=== PATIENT | female | born 1995 | race African-American/Black ===

== ENCOUNTER 2019-07-05 12:21 | Emergency (ER) | payer OTHER, SELFPAY ==
--- NOTE | 2019-07-05 13:13 | RAD ---
LEFT FOOT 3 VIEWS: Date: 07/05/19 HISTORY: Injury this morning following a fall with left 5th metatarsal pain. FINDINGS/IMPRESSION: No fracture, dislocation, or other significant acute osseous abnormality. POS: [facility]
== END 2019-07-05 13:20 | disposition home or self-care (01) ==
LOC: MADERS 12:21
DX: S93.602A Unspecified sprain of left foot, initial encounter (principal); W22.8XXA Striking against or struck by other objects, initial encounter

== ENCOUNTER 2020-04-25 14:46 | Emergency (ER) | payer OTHER, SELFPAY ==
[2020-04-25] MEDS ORDERED: Lidocaine 1% w/Epinephrine 1:100K 20 ML VIAL ONE (15:09)
[2020-04-25] MEDS ORDERED: Lidocaine 2% w/Epinephrine 1:200K 20 ML VIAL ONE (15:09)
[2020-04-25] MEDS ORDERED: Sodium Ferric Gluconate 62.5 MG/5 ML AMP ONE ×2 (15:34→15:42)
== END 2020-04-25 15:30 | disposition home or self-care (01) ==
LOC: MADERS 14:46
DX: L02.411 Cutaneous abscess of right axilla (principal)
CPT/HCPCS: 10060; J2916

== ENCOUNTER 2020-06-08 17:38 | Emergency (ER) | payer MEDICAID, SELFPAY ==
[2020-06-08] MEDS ORDERED: Lidocaine 2% w/Epinephrine 1:200K 20 ML VIAL ONE (18:12)
== END 2020-06-08 18:49 | disposition home or self-care (01) ==
LOC: MADERS 17:38
DX: L02.411 Cutaneous abscess of right axilla (principal)
CPT/HCPCS: 10060

== ENCOUNTER 2020-07-23 02:40 | Emergency (ER) | payer SELFPAY ==
[2020-07-23 03:30] LABS: Hemoglobin 13.2 g/dL (12.0-16.0); Mean Corpuscular HGB CONC 31.2 g/dL (32.0-36.0); Mean Corpuscular Hemoglobin 27.1 pg (27.0-31.0); Mean Corpuscular Volume 86.7 fL (78.0-98.0); Mean Platelet Volume 7.6 fL (7.4-10.4); Platelet Count 305 thou/uL (130-400); RBC Distribution Width 13.1 % (11.5-14.5); Red Blood Cell (RBC) Count 4.87 mill/uL (4.20-5.40); White Blood Cell (WBC) Count 7.7 thou/uL (4.8-10.8)
[2020-07-23 03:40] LABS: ALT (SGPT) 11 U/L (8-55); AST (SGOT) 10 U/L (5-34); Albumin 3.9 g/dL (3.5-5.0); Alkaline Phosphatase 76 U/L (40-110); Anion Gap 13 mmol/L (10-20); BUN (Urea Nitrogen) 14 mg/dL (7.0-18.7); Bilirubin, Total 0.4 mg/dL (0.2-1.2); Calc. Creatinine Clearance 0 mL/min (70-130); Carbon Dioxide 26 mmol/L (22-29); Chloride 105 mmol/L (98-107); Estimated GFR-MDRD Greater than 90; Globulin 3.5 g/dL (2.4-3.5); Glucose 103 mg/dL (70-105); Potassium 3.5 mmol/L (3.5-5.1); Protein, Total 7.4 g/dL (6.0-8.3); Sodium 140 mmol/L (136-145)
[2020-07-23 03:41] LABS: BHCG - Serum Negative (NEGATIVE); Pregs Control Background? CLEAR/WHITE (CLR/WHITE); Pregs Control Bar Appear? YES (CONTROL BAR)
[2020-07-23 04:04] LABS: Lymphocytes 33 % (21-51); MDiff Complete? YES; Monocytes 8 % (0-10); Neutrophil 59 % (42-75); Platelet Morphology Comment Appears Adequate; RBC Morphology Normal
[2020-07-23] MEDS ORDERED: Ketorolac Tromethamine 60 MG/2 ML VIAL ONE (04:15)
== END 2020-07-23 04:45 | disposition home or self-care (01) ==
LOC: MADERS 02:40
DX: R10.11 Right upper quadrant pain (principal)
CPT/HCPCS: 80053; 84703; 85007; 85027; 96372; 99284; J1885

== ENCOUNTER 2021-05-08 10:20 | Emergency (ER) | payer SELFPAY ==
[2021-05-08] MEDS ORDERED: Prochlorperazine 10 MG/2 ML VIAL ONE (10:57)
[2021-05-08] MEDS ORDERED: Ketorolac Tromethamine 30 MG/ML VIAL ONE (10:57)
[2021-05-08] MEDS ORDERED: diphenhydrAMINE 50 MG/ML VIAL ONE (10:57)
[2021-05-08] MEDS ORDERED: Sodium Chloride 0.9% 1,000 ML ONE (10:57)
== END 2021-05-08 12:35 | disposition home or self-care (01) ==
LOC: MADERS 10:20
DX: R51.9 Headache, unspecified (principal)
CPT/HCPCS: 96365; 96375; J0780; J1200; J1885; J7050

== ENCOUNTER 2021-06-17 09:24 | Outpatient (CLI) | payer OTHER | END 2021-06-17 09:25 | disposition home or self-care (01) | LOC: MADRAD 09:24 | PROVIDERS: ATTEND Family Medicine | DX: R10.11 Right upper quadrant pain (principal); K80.20 Calculus of gallbladder without cholecystitis without obstruction | CPT/HCPCS: 76705 ==

== ENCOUNTER 2021-12-20 09:09 | Emergency (ER) | payer OTHER | END 2021-12-20 10:36 | disposition home or self-care (01) | LOC: MADERS 09:09 | DX: S43.422A Sprain of left rotator cuff capsule, initial encounter (principal); I10 Essential (primary) hypertension; Y04.0XXA Assault by unarmed brawl or fight, initial encounter ==

== ENCOUNTER 2022-01-31 07:45 | Emergency (ER) | payer SELFPAY ==
[2022-01-31] MEDS ORDERED: Ondansetron PF 4 MG/2 ML Vial ONE (08:41)
[2022-01-31] MEDS ORDERED: Ketorolac Tromethamine 30 MG/ML VIAL ONE (08:41)
[2022-01-31] MEDS ORDERED: Lactated Ringer's 1,000 ML ONE ×2 (08:41→10:33)
[2022-01-31 09:02] LABS: #Basophils 0.1 thou/uL (0.0-0.2); #Lymphocytes 1.6 thou/uL (1.20-3.40); #Monocytes 0.3 thou/uL (0.11-0.59); #Neutrophils 5.2 thou/uL (1.40-6.50); %Eosinophils 0.3 % (0.0-10.0); %Monocytes 3.9 % (0.0-10.0); %Neutrophils 72.8 % (42.0-75.0); Hemoglobin 13.4 g/dL (12.0-16.0); Mean Corpuscular HGB CONC 32.5 g/dL (32.0-36.0); Mean Corpuscular Hemoglobin 28.7 pg (27.0-31.0); Mean Corpuscular Volume 88.2 fL (78.0-98.0); Mean Platelet Volume 7.2 fL (7.4-10.4); Platelet Count 263 thou/uL (130-400); Red Blood Cell (RBC) Count 4.67 mill/uL (4.20-5.40); White Blood Cell (WBC) Count 7.2 thou/uL (4.8-10.8)
[2022-01-31 09:17] LABS: BHCG - Serum POSITIVE (NEGATIVE); Pregs Control Background? CLEAR/WHITE (CLR/WHITE); Pregs Control Bar Appear? YES (CONTROL BAR)
[2022-01-31 09:19] LABS: ALT (SGPT) 17 U/L (8-55); AST (SGOT) 15 U/L (5-34); Alkaline Phosphatase 65 U/L (40-110); Anion Gap 11 mmol/L (10-20); BUN (Urea Nitrogen) 12 mg/dL (7.0-18.7); Bilirubin, Total 0.6 mg/dL (0.2-1.2); Calc. Creatinine Clearance 0 mL/min (70-130); Calcium 9.3 mg/dL (7.8-10.44); Carbon Dioxide 24 mmol/L (22-29); Chloride 106 mmol/L (98-107); Globulin 3.3 g/dL (2.4-3.5); Glucose 96 mg/dL (70-105); Lipase 15 U/L (8-78); Potassium 3.6 mmol/L (3.5-5.1); Protein, Total 7.3 g/dL (6.0-8.3); Sodium 137 mmol/L (136-145)
[2022-01-31] MEDS ORDERED: Sodium Chloride 0.9% 100 ML ONE (09:55)
[2022-01-31] MEDS ORDERED: Piperacillin/Tazobactam 4.5 GM VIAL ONE (09:55)
== END 2022-01-31 11:10 | disposition short-term general hospital (02) ==
LOC: MADERS 07:45
DX: O99.611 Diseases of the digestive system complicating pregnancy, first trimester (principal); K80.00 Calculus of gallbladder with acute cholecystitis without obstruction; Z3A.01 Less than 8 weeks gestation of pregnancy
CPT/HCPCS: 36415; 76705; 80053; 83605; 83690; 84703; 85025; 87040; 96365; 96375; J1885; J2405; J2543; J3490; J7120

== ENCOUNTER 2022-02-21 08:19 | Emergency (ER) | payer BC, SELFPAY ==
[2022-02-21 09:23] LABS: Hemoglobin 13.8 g/dL (12.0-16.0); Mean Corpuscular HGB CONC 33.7 g/dL (32.0-36.0); Mean Corpuscular Hemoglobin 29.5 pg (27.0-31.0); Mean Corpuscular Volume 87.4 fL (78.0-98.0); Mean Platelet Volume 6.9 fL (7.4-10.4); Platelet Count 266 thou/uL (130-400); RBC Distribution Width 12.1 % (11.5-14.5); Red Blood Cell (RBC) Count 4.69 mill/uL (4.20-5.40)
[2022-02-21 09:24] LABS: #Basophils 0.1 thou/uL (0.0-0.2); #Eosinphils 0.1 thou/uL (0.0-0.7); #Lymphocytes 2.1 thou/uL (1.20-3.40); #Monocytes 0.4 thou/uL (0.11-0.59); #Neutrophils 3.3 thou/uL (1.40-6.50); %Basophils 1.5 % (0.0-1.0); %Eosinophils 1.5 % (0.0-10.0); %Lymphocytes 35.6 % (21.0-51.0); %Monocytes 6.1 % (0.0-10.0); %Neutrophils 55.3 % (42.0-75.0)
== END 2022-02-21 11:17 | disposition home or self-care (01) ==
LOC: MADERS 08:19
DX: O20.9 Hemorrhage in early pregnancy, unspecified (principal); Z3A.09 9 weeks gestation of pregnancy
CPT/HCPCS: 36415; 76815; 84702; 85025; 86900; 86901

== ENCOUNTER 2022-06-20 10:38 | Emergency (ER) | payer BC ==
[2022-06-20] MEDS ORDERED: Ondansetron ODT 4 MG TAB ONE (11:43)
== END 2022-06-20 11:47 | disposition home or self-care (01) ==
LOC: MADERS 10:38
DX: O21.0 Mild hyperemesis gravidarum (principal); O26.891 Other specified pregnancy related conditions, first trimester; E86.0 Dehydration; O10.911 Unspecified pre-existing hypertension complicating pregnancy, first trimester; Z3A.01 Less than 8 weeks gestation of pregnancy; Z79.899 Other long term (current) drug therapy
CPT/HCPCS: 99283; Q0162

== ENCOUNTER 2022-12-30 12:01 | Emergency (ER) | payer BC ==
[2022-12-30] MEDS ORDERED: Boostrix 0.5 ML (Tdap) VIAL (>/=7 yrs of age) ONE (12:33)
[2022-12-30] MEDS ORDERED: Lidocaine 1% w/Epinephrine 1:100K 20 ML VIAL ONE (12:33)
== END 2022-12-30 12:59 | disposition home or self-care (01) ==
LOC: MADERS 12:01
DX: O23.593 Infection of other part of genital tract in pregnancy, third trimester (principal); O10.913 Unspecified pre-existing hypertension complicating pregnancy, third trimester; Z79.899 Other long term (current) drug therapy; Z3A.34 34 weeks gestation of pregnancy
CPT/HCPCS: 56405; 87070; 87205; 90471; 90715

== ENCOUNTER 2023-06-24 10:08 | Emergency (ER) | payer BC, OTHER | END 2023-06-24 11:41 | disposition home or self-care (01) | LOC: MADERS 10:08 | DX: O03.9 Complete or unspecified spontaneous abortion without complication (principal); I10 Essential (primary) hypertension | CPT/HCPCS: 84702; 99284 ==

== ENCOUNTER 2025-11-22 02:28 | Emergency (ER) | payer OTHER, SELFPAY | END 2025-11-22 03:01 | disposition home or self-care (01) | LOC: MADERS 02:28 | DX: S01.501A Unspecified open wound of lip, initial encounter (principal); I10 Essential (primary) hypertension; W50.0XXA Accidental hit or strike by another person, initial encounter | CPT/HCPCS: 99283 ==